=== PATIENT | male | born 1955 | race Caucasian/White ===

== ENCOUNTER 2018-07-17 17:28 | Observation (INO) | payer BC ==
[~2018-07-17] VITALS: Ht 193 cm; Wt 153.9 kg
[~2018-07-17 17:28] MED LIST: ACAR100T2 PO; ASPI-1197 PO; ATOR20TA65 PO; CARAL PO; DABI150C PO; DRON400T2 PO; ENAL10TA PO; FURO80TA3 PO; LEVO50TA11 PO; MELO-108 PO; METF-446 PO; PANT40TA PO; POTA-79 PO; SAXA5TAB PO; TEST1.25 TP; TRAZ-187 PO; TYL3B PO; VERA180T8 PO; ZOLP12.52 PO
[2018-07-17 17:48] LABS: BASOPHILS % (AUTO) 0.8 % (0.0-5.0); EOSINOPHILS % (AUTO) 1.8 % (0.0-8.0); HEMATOCRIT 45.5 % (42-54); LYMPHOCYTES % (AUTO) 27.1 % (21.0-51.0); MEAN CORPUSCULAR HEMOGLOBIN 29.2 pg (27.0-33.0); MEAN CORPUSCULAR HGB CONC 34.1 g/dL (32.0-36.0); MEAN CORPUSCULAR VOLUME 85.8 fL (79-99); MONOCYTES % (AUTO) 11.2 % (3.0-13.0); NEUTROPHILS % (AUTO) 59.1 % (40.0-77.0); PLATELET COUNT (AUTO) 174 K/uL (130-400); RED CELL DISTRIBUTION WIDTH 14.8 % (11.0-15.5); WHITE BLOOD COUNT (AUTO) 6.3 K/uL (4.8-10.8)
[2018-07-17 18:01] LABS: INR 1.09 (0.85-1.15); PARTIAL THROMBOPLASTIN TIME 36.6 SEC (26.3-35.5); PROTHROMBIN TIME 11.4 SEC (9.6-11.6)
[2018-07-17] MEDS ORDERED: DEXTROSE 5%-WATER 100 ML IV ONE (18:08)
[2018-07-17] MEDS ORDERED: AMIODARONE HCL 50 MG/ML 3 ML VIAL ONE (18:08)
[2018-07-17 18:13] LABS: CREATININE 1.2 mg/dL (0.5-1.5); POTASSIUM 4.1 mmol/L (3.5-5.1)
[2018-07-17 18:25] LABS: RAPID GROUP A STREP NEGATIVE (NEGATIVE)
[2018-07-17 18:28] LABS: ALBUMIN 4.1 g/dL (3.5-5.0); BILIRUBIN,TOTAL 0.4 mg/dL (0.2-1.0); THYROID STIMULATING HORMONE 1.15 uIU/mL (0.36-3.74); TOTAL PROTEIN, SERUM 7.2 g/dL (6.0-8.3)
[2018-07-17] MEDS ORDERED: AMIODARONE HCL 900 MG in DEXTROSE 5%-WATER 500 ML IV SCH (18:30)
[2018-07-17] MEDS ORDERED: ONDANSETRON HCL 4 MG/2 ML VIAL IV PRN (19:45)
[2018-07-17] MEDS ORDERED: MORPHINE SULFATE 2 MG/ML 1ML SYG IV PRN (19:45)
[2018-07-17] MEDS ORDERED: ACETAMINOPHEN 325 MG TAB PO PRN (19:45)
[2018-07-17] MEDS ORDERED: ZOLPIDEM TARTRATE 5 MG TAB PO SCH (21:00)
[2018-07-17] MEDS ORDERED: DRONEDARONE HYDROCHLORIDE 400 MG TABLET PO SCH (21:00)
[2018-07-17] MEDS ORDERED: TRAZODONE HCL 100 MG TABLET PO SCH (21:00)
[2018-07-17] MEDS ORDERED: ATORVASTATIN CALCIUM 20 MG TABLET PO SCH (21:00)
[2018-07-17] MEDS ORDERED: ASPIRIN 81MG TAB.CHEW PO SCH (21:00)
[2018-07-17] MEDS ORDERED: ENALAPRIL MALEATE 10 MG TABLET PO SCH (21:00)
[2018-07-17] MEDS: SUCRALFATE 1 GM TABLET PO SCH (22:42)
[2018-07-17] MEDS: POTASSIUM CHLORIDE 20 MEQ ERTAB PO SCH (22:42)
[2018-07-17] MEDS: DABIGATRAN ETEXILATE MESYLATE 150 MG CAPSULE PO SCH (22:44)
[2018-07-17] MEDS: VERAPAMIL HCL 80 MG TABLET PO SCH (22:44)
[2018-07-17 22:45] VITALS: BP 116/84
[2018-07-18 03:55] VITALS: BP 109/70
[2018-07-18] MEDS: VERAPAMIL HCL 80 MG TABLET PO SCH ×2 (05:07→16:09)
[2018-07-18] MEDS ORDERED: LEVOTHYROXINE 50 MCG TABLET PO SCH (06:30)
[2018-07-18 07:48] VITALS: BP 100/48
[2018-07-18] MEDS ORDERED: VERAPAMIL PO SCH (09:00)
[2018-07-18] MEDS ORDERED: ENALAPRIL MALEATE 10 MG TABLET PO SCH (09:00)
[2018-07-18] MEDS ORDERED: PANTOPRAZOLE SODIUM 40 MG TABLET.DR PO SCH (09:00)
[2018-07-18] MEDS ORDERED: FUROSEMIDE 80 MG TABLET PO SCH (09:00)
[2018-07-18] MEDS ORDERED: METOPROLOL TARTRATE 25 MG TAB PO SCH (09:00)
[2018-07-18] MEDS: POTASSIUM CHLORIDE 20 MEQ ERTAB PO SCH (09:21)
[2018-07-18] MEDS: SUCRALFATE 1 GM TABLET PO SCH ×3 (09:21→17:27)
[2018-07-18] MEDS: DABIGATRAN ETEXILATE MESYLATE 150 MG CAPSULE PO SCH (09:22)
[2018-07-18 12:04] VITALS: BP 94/70
[2018-07-18 16:35] VITALS: BP 121/63
[2018-07-18] MEDS ORDERED: DRON400T2 PO (18:40)
[2018-07-18 19:45] VITALS: BP 123/60
--- NOTE | 2018-07-18 19:45 | NUR ---
DC DC TEACHING AND INSTRUCTION GIVEN TO PT; VOICED UNDERSTANDING. BP-123/60, SR-97. PT DENIES PAIN OR DISTRESS. PT ESCORTED TO PRIVATE CAR VIA WHEELCHAIR IN STABLE CONDITION.
== END 2018-07-18 19:35 | disposition home or self-care (01) ==
LOC: EDH 17:28 → EDHIP 18:40 → UNDOADMOB 18:40 → EDHIP 22:26 → 2DH 22:26
PROVIDERS: ADMIT Hospitalist; ATTEND Hospitalist
DX: I48.0 Paroxysmal atrial fibrillation (principal); E11.9 Type 2 diabetes mellitus without complications; E78.5 Hyperlipidemia, unspecified; E87.6 Hypokalemia; E03.9 Hypothyroidism, unspecified; I10 Essential (primary) hypertension; I25.10 Atherosclerotic heart disease of native coronary artery without angina pectoris; I48.92 Unspecified atrial flutter; Z79.84 Long term (current) use of oral hypoglycemic drugs; Z95.0 Presence of cardiac pacemaker; Z95.5 Presence of coronary angioplasty implant and graft; Z96.653 Presence of artificial knee joint, bilateral; Z90.49 Acquired absence of other specified parts of digestive tract; Z82.0 Family history of epilepsy and other diseases of the nervous system; Z82.3 Family history of stroke; Z82.49 Family history of ischemic heart disease and other diseases of the circulatory system; Z82.5 Family history of asthma and other chronic lower respiratory diseases; Z83.3 Family history of diabetes mellitus
CPT/HCPCS: 36415; 71045; 80053; 82550; 82948 ×3; 83880; 84443; 84484 ×2; 85025; 85610; 85730; 87804 ×2; 87880; 93005 ×3; 99291; G0378 ×25; J0282 ×2; J7060 ×2

== ENCOUNTER 2024-09-04 10:20 | Emergency (ER) | payer BC, MEDICARE ==
[~2024-09-04] VITALS: Ht 193 cm; Wt 142.9 kg
[~2024-09-04 10:20] MED LIST changes: +ALLO100T PO; +AMIO400T4 PO; -ATOR20TA65 PO; -CARAL PO; +COLC0.6T73 PO; -DRON400T2 PO; +ENAL-89 PO; -ENAL10TA PO; -MELO-108 PO; -PANT40TA PO; +POTA-364 PO; -POTA-79 PO; +ROSU20TA98 PO; -TEST1.25 TP; -TYL3B PO; -VERA180T8 PO; -ZOLP12.52 PO; +ZOLP12.570 PO
--- NOTE | 2024-09-04 10:51 | ERN ---
General Chief Complaint: Chest Pain Stated Complaint: CP, SOB X 7 WEEKS Source: patient History of Present Illness Initial Comments History of present illness: 69-year-old male with past medical history of atrial fibrillation on Xarelto, CAD status post CABG in 2022, hypertension, hyperlipidemia, hypothyroidism, diabetes mellitus presented to ED with complaints of shortness of breath and chest pain for past 2 weeks. As per the patient, he visited and an emergency department in [place] 2 weeks back with similar complaints where his labs and EKG were unremarkable. His chest pain is central, nonradiating and persistent, associated with shortness of breath and dizziness on exertion. He expectorates white sputum. The patient visited his beef cattle farm worker, Dr. Manuel and is waiting to schedule an appointment with the heat treater helper for possible ablation because of his atrial flutter. Kyle etienne states that his heart rate was elevated at home. No sudden worsening of his symptoms. Patient denies nausea, vomiting, fever, change in bowel or bladder habits. The time presentation his heart rate is 62 per minute, blood pressure 126/73, respiratory rate 16 per minute, temperature 98.4. Timing/Duration: 1 week, constant Severity/Quality: dull Location: substernal Radiation: no radiation Activities at Onset: activity Prior Chest Pain/Cardiac Viet: other Modifying Factors: movement Past Medical History Past Medical History: A-Fib, Diabetes-Type II, Heart Disease, Hypertension Past Surgical History: CABG Constitutional: (-) chills, (-) diaphoresis, (-) fever, (-) malaise, (-) weakness, (-) other documentation EENTM: (-) eye pain, (-) blurred vision, (-) tearing, (-) double vision, (-) ear pain, (-) ear discharge, (-) nose pain, (-) nose congestion, (-) throat pain, (-) Throat swelling, (-) mouth pain, (-) tooth pain, (-) mouth swelling, (-) other documentation Cardiovascular: (+) chest pain, (+) edema, (+) palpitations Gastrointestinal/Abdominal: (-) nausea, (-) vomiting, (-) diarrhea, (-) abdominal pain, (-) abdominal distention, (-) constipation, (-) rectal bleeding, (-) dark stool/melena, (-) other documentation Neuro: (-) altered mental status, (-) headache, (-) syncope, (-) paralysis, (-) numbness, (-) seizure, (-) pre-existing deficit, (-) tremors, (-) weakness, (-) dizziness, (-) slurred speech, (-) vertigo, (-) other documentation Physical Exam General Appearance: (+) no apparent distress Orientation: (+) alert, (+) oriented x 3 Head/Face Trauma: No Eye: bilateral eye normal inspection, bilateral eye PERRL, bilateral eye EOMI Respiratory: (+) chest non-tender, (+) crackles Heart: (+) regular Vascular: (+) edema Gastrointestinal: (+) soft, (+) non-tender, (+) bowel sound present Results Laboratory and Microbiology Lab and Micro Result Laboratory Tests Test 09/04/24 11:10 09/04/24 12:37 09/04/24 13:10 White Blood Count 5.9 K/uL (4.8-10.8) Red Blood Count 5.15 MIL/uL (4.50-6.20) Hemoglobin 14.4 g/dL (14.0-18.0) Hematocrit 45.1 % (42-54) Mean Corpuscular Volume 87.6 fL (79-99) Mean Corpuscular Hemoglobin 28.0 pg (27.0-33.0) Mean Corpuscular Hemoglobin Concent 31.9 g/dL (32.0-36.0) L Red Cell Distribution Width 13.2 % (11.0-15.5) Platelet Count 156 K/uL (130-400) Mean Platelet Volume 9.1 fL (7.5-10.5) Immature Granulocyte % (Auto) 0.7 % (0-1) Neutrophils (%) (Auto) 68.5 % (40.0-77.0) Lymphocytes (%) (Auto) 19.6 % (21.0-51.0) L Monocytes (%) (Auto) 9.7 % (3.0-13.0) Eosinophils (%) (Auto) 1.2 % (0.0-8.0) Basophils (%) (Auto) 0.3 % (0.0-5.0) Neutrophils # (Auto) 4.0 K/uL (1.8-7.7) Lymphocytes # (Auto) 1.2 K/uL (1.0-4.8) Monocytes # (Auto) 0.6 K/uL (0.1-1.0) Eosinophils # (Auto) 0.07 K/uL (0.00-0.70) Basophils # (Auto) 0.02 K/uL (0.00-0.20) Absolute Immature Granulocyte (auto 0.04 K/uL (0-1) Nucleated Red Blood Cells 0.0 % (0.0-0.19) Sodium Level 137 mmol/L (136-145) Potassium Level 4.0 mmol/L (3.5-5.1) Chloride Level 99 mmol/L (101-111) L Carbon Dioxide Level 34 mmol/L (21-32) H Blood Urea Nitrogen 27 mg/dL (7-18) H Creatinine 0.9 mg/dL (0.5-1.3) Glomerular Filtration Rate Calc 94 mL/min (>90) Random Glucose 173 mg/dL (70-105) H Total Calcium 9.5 mg/dL (8.5-10.1) Total Creatine Kinase 41 U/L (21-232) # 56 U/L (21-232) # B-Type Natriuretic Peptide 110 pg/mL (0-100) H Urine Color LIGHT-YELLOW (YELLOW) Urine Appearance CLEAR (CLEAR) Urine pH 5.0 (5.0-8.0) Urine Specific [place] 1.022 (1.001-1.031) Urine Protein NEGATIVE mg/dL (NEGATIVE) Urine Glucose (UA) >=1000 mg/dL (NEGATIVE) H Urine Ketones NEGATIVE mg/dL (NEGATIVE) Urine Occult Blood NEGATIVE (NEGATIVE) Urine Nitrate NEGATIVE (NEGATIVE) Urine Bilirubin NEGATIVE mg/dL (NEGATIVE) Urine Urobilinogen 0.2 mg/dL (0.2-1.0) Urine Leukocyte Esterase NEGATIVE Camilla/uL Urine RBC None /HPF (0-1) Urine WBC 0-1 /HPF (0-1) Urine Bacteria None /HPF (None Seen) Magnesium Level 2.00 mg/dL (1.80-2.40) Troponin I High Sensitivity 19 ng/L (4-75) EKG/XRAY/US/CT/MRI EKG Comment Regular sinus rhythm with ventricular rate of 62 beats per minute ND interval 227, QTC 483 Normal axis Right bundle branch block Orders, Meds, Vital Signs Orders Procedure Category Date Status Time Vital Signs Per CPOE 09/04/24 Transmitted Routine 10:48 B-Type Natriuretic LAB 09/04/24 Complete Peptide 10:48 Chest 1vw RAD 09/04/24 Resulted 10:48 12 Lead Ekg Tracing- EKG 09/04/24 Complete Technical 10:48 Oxygen By Nc/Pulse Ox CPOE 09/04/24 Transmitted 10:48 Maintain Iv CPOE 09/04/24 Transmitted 10:48 Iv Insertion CPOE 09/04/24 Transmitted 10:48 Cardiac Monitoring CPOE 09/04/24 Transmitted 10:48 Pulse Oximetry With CPOE 09/04/24 Transmitted Vs And Prn 10:48 Cbc With Differential LAB 09/04/24 Complete 10:48 Activity: Br W/Brp CPOE 09/04/24 Transmitted With Assist 10:48 Creatine Kinase, Total LAB 09/04/24 Complete 10:48 Urinalysis Profile LAB 09/04/24 Complete 10:48 Bedside Troponin-I LAB.ER 09/04/24 Complete (Poc) 10:48 Basic Metabolic Panel LAB 09/04/24 Complete 10:48 Magnesium LAB 09/04/24 Complete 12:38 Creatine Kinase, Total LAB 09/04/24 Complete 12:38 Troponin I High LAB 09/04/24 Complete Sensitivity 12:38 Vital Signs Date Time Temp Pulse Resp B/P (MAP) Pulse Ox O2 Delivery O2 Flow Rate FiO2 09/04/24 16:17 98.4 73 20 98/53 100 Room Air* 0 09/04/24 15:30 98.4 60 20 124/70 100 Room Air* 0 09/04/24 14:30 98.4 60 20 124/72 100 Room Air* 0 09/04/24 13:32 98.6 59 20 122/71 100 Room Air* 0 09/04/24 12:36 98.6 59 20 138/73 100 Room Air* 0 09/04/24 11:30 98.6 61 20 134/79 100 Room Air* 0 09/04/24 10:21 98.4 63 16 126/73 96 Room Air 0 Differential diagnosis : Atrial fibrillation converted to normal sinus, arrhythmia, CHF exacerbation Rationale: Tests considered and ordered secondary to shared decision making include: I will re-evaluate the patient after treatment and diagnostic exams have returned to determine whether they require further testing, can be safely discharged home, or need admission for further treatment and evaluation. Given the social determinants of health affecting care, including literacy, access to medical care, prescription drug management, and [id number] drugs, I will ensure that treatment plans are tailored accordingly. There are no social concerns with this patient. Risk of complication and/or morbidity or mortality of patient management: None Need for hospitalization: Patient does not meet criteria for hospitalization. Need for emergency major/minor surgery: No Prescription drug management Prescriptions will include symptomatic care Medications-Per medication reconciliation Previous outside records reviewed: Old ER visits. Patient's prior external medical records from other ER visits were reviewed by me as indicated. Prior testing and results from previous visits were reviewed. Prior tests were taken into account with medical decision making and resource utilization, independent historian/historians were used to obtain complete medical history. I independently interpreted the test that were performed, results were reviewed by me and considered findings on radiology. Medical management and examination interpretation discussions was done by me with other qualified healthcare professionals as indicated for the patient's care. Revaluation: Patient has been hemodynamically stable throughout the course of observation in emergency room. Reached out to Dr. Manuel-she recommended to follow up as outpatient if he develops further episodes of palpitations. Tana allen patient is in normal sinus rhythm and she does not recommendation admission at this time. Conveyed the same to patient and bystander -they are agreement. Disposition : Discharge the patient home DX & DISP Departure Impression: Primary Impression: Palpitations Additional Impressions: Chest pain due to CAD, CHF (congestive heart failure) Condition: Stable Disposition: Discharge Additional Instructions: Your symptoms including mild chest pain and shortness of breaths that has been persisting for weeks might be attributed to atrial fibrillation episodes versus congestive heart failure heart failure vs coronary artery disease. During the time you were observed in the emergency department, you had normal sinus rhythm. As per the cardiology recommendations - follow up with cardiology as outpatient . Follow-up with primary care provider in 1-2 days Take medications as directed here in the emergency room. It is okay to continue home medications unless otherwise discussed during your visit in the emergency room today. Increase oral hydration. Return to your nearest emergency room if symptoms worsen or if there is no improvement. Call 911 if you need immediate assistance. Referrals: SELF,REFERRAL (PCP) I WAS PRESENT AND PARTICIPATED IN THE CARE OF THIS PATIENT ALONGSIDE WITH THE RESIDENT PHYSICIAN. I HAVE REVIEWED AND PERSONALLY MADE AND APPROVED THE MANAGEMENT PLAN THAT IS DOCUMENTED IN THE NOTE BY MYSELF WITH THE RESIDENT PHYSICIAN. I ACKNOWLEDGED FOR RESPONSIBILITY FOR THE PATIENT'S MANAGEMENT PLAN. Critical Care Note Comments HEART Score for Major Cardiac Events RESULT SUMMARY: 5 points Moderate Score (4-6 points) Risk of MACE of 12-16.6%. INPUTS: History > 0 = Slightly suspicious EKG > 1 = Non-specific repolarization disturbance Age > 2 = >65 Risk factors > 2 = >3 risk factors or history of atherosclerotic disease Initial troponin > 0 = <normal limit ROJAS ABREU MD Sep 04, 2024 10:51 ROMELIA CHANDRA MD Sep 06, 2024 08:53
[2024-09-04 11:17] LABS: BASOPHILS # (AUTO) 0.02 K/uL (0.00-0.20); BASOPHILS % (AUTO) 0.3 % (0.0-5.0); EOSINOPHILS # (AUTO) 0.07 K/uL (0.00-0.70); EOSINOPHILS % (AUTO) 1.2 % (0.0-8.0); HEMATOCRIT 45.1 % (42-54); IMMATURE GRANULOCYTE ABSOLUTE 0.04 K/uL (0-1); LYMPHOCYTES # (AUTO) 1.2 K/uL (1.0-4.8); LYMPHOCYTES % (AUTO) 19.6 % (21.0-51.0); MEAN CORPUSCULAR HGB CONC 31.9 g/dL (32.0-36.0); MEAN CORPUSCULAR VOLUME 87.6 fL (79-99); MONOCYTES # (AUTO) 0.6 K/uL (0.1-1.0); MONOCYTES % (AUTO) 9.7 % (3.0-13.0); NEUTROPHILS % (AUTO) 68.5 % (40.0-77.0); PLATELET COUNT (AUTO) 156 K/uL (130-400); RED BLOOD CELL COUNT(AUTO) 5.15 MIL/uL (4.50-6.20); RED CELL DISTRIBUTION WIDTH 13.2 % (11.0-15.5); WHITE BLOOD COUNT (AUTO) 5.9 K/uL (4.8-10.8)
[2024-09-04 11:31] LABS: CREATININE 0.9 mg/dL (0.5-1.3)
[2024-09-04 11:47] LABS: B-TYPE NATRIURETIC PEPTIDE 110 pg/mL (0-100)
--- NOTE | 2024-09-04 12:03 | EKG ---
[facility] Test Date: 2024-09-04 Test Time: 10:28:12 Pat Name: ADRIENNE AKHTAR Department: ED Room: Gender: M Maintainability Engineer: [id number] : 1955 Requested By: ROMELIA CHANDRA Order Number: [id number] Reading MD: Juanpablo Lovett Measurements Intervals [place] Rate: 62 P: 73 MT: 227 QRS: -24 QRSD: 171 T: 7 QT: 474 QTc: 483 Interpretive Statements Sinus rhythm Prolonged MT interval Right bundle branch block Compared to ECG 04/20/2020 05:59:55 First degree AV block now present Sinus tachycardia no longer present Atrial premature complex(es) no longer present Ventricular premature complex(es) no longer present Myocardial infarct finding no longer present Electronically Signed On 09-06-2024 14:01:56 CDT by Juanpablo Lovett Please click the below link to view image of tracing.
--- NOTE | 2024-09-04 12:18 | HMCIMG ---
Exam Type: CHEST 1VW Clinical Information: CHEST PAIN Comparison: None Findings: The lungs are clear of infiltrates. The heart is enlarged. Bony and soft tissue structures of the chest wall are unremarkable. IMPRESSION: Cardiomegaly. Clear lungs.
[2024-09-04 13:24] LABS: APPEARANCE,URINE CLEAR (CLEAR); BILIRUBIN,URINE NEGATIVE (NEGATIVE); COLOR,URINE LIGHT-YELLOW (YELLOW); GLUCOSE, URINE (UA) >=1000 mg/dL (NEGATIVE); KETONES,URINE NEGATIVE (NEGATIVE); LEUKOCYTE ESTERASE ,URINE NEGATIVE Leu/uL (NEGATIVE); NITRATE,URINE NEGATIVE (NEGATIVE); OCCULT BLOOD,URINE NEGATIVE (NEGATIVE); PROTEIN,URINE NEGATIVE (NEGATIVE); UROBILINOGEN,URINE 0.2 mg/dL (0.2-1.0)
[2024-09-04 13:50] LABS: ADD UA MICROSCOPIC YES
[2024-09-04 13:56] LABS: WBC,URINE 0-1 /HPF (0-1)
--- NOTE | 2024-09-04 14:33 | CONS ---
[facility] CARDIOLOGY CONSULTATION REPORT Cardiology consultation note dictated for Yokasta White MD Date Patient Seen: Sep 04, 2024 Requesting Physician: Yee Jacobsen MD Reason for Consultation: Chest pain History of Present Illness: This is a 69-year-old male with past medical history of HTN, CAD s/p PCI in 2009, four-vessel coronary bypass grafting in October 2022 at [facility], paroxysmal atrial fibrillation s/p PVI 01/2015 and redo right PVI with posterior wall ablation 07/08/15, type I atrial flutter, s/p single chamber PPM implant and s/p PPM explant and lead extraction 04/18/19, 2D Echo in 2021 with an EF of 60- 65%, cardioversion for tachycardia in January and February 2024 with 30-day monitor with Dr. Laughlin but results are not available, and symptomatic refractory tachycardia who presented to the ED with complaints of chest pain, palpitations, shortness of breath with or without exertion, dizziness, and general body weakness that gradually progressed over the last six weeks prompting him to seek medical attention today. He endorsed his heart rate on his blood pressure monitor was in the one-teens this morning. Upon arrival, EKG demonstrated NSR/1st degree AVB with a hr of 62bpm, and a RBBB. Cardiology has been consulted for recommendations. At this time, the patient states he is no longer symptomatic and feels great. Bedside telemetry demonstrates NSR with hr in the 70's. He believes he may have converted from Atrial flutter to NSR after a bowel movement. Past Medical History: As per HPI and summarized below Past Surgical History: Four-vessel coronary bypass grafting in October 2022 at [facility] S/p single chamber PPM implant and s/p PPM explant and lead extraction 04/18/19 Family History: The patient's father was diagnosed with cancer and diabetes mellitus type II. The patient's mother was diagnosed with hypertension and heart disease. Social History: The patient lives with his . Habits: The patient denies alcohol, tobacco, or illicit drug use. Home Meds: Sotalol HCl 80 MG Tablet 1 tablet Orally every 12 hrs Bumetanide 1 MG Tablet 1 tablet Orally twice a day Losartan Potassium 50 MG Tablet 1 tablet Orally Once a day Xarelto 20 MG Tablet 1 tablet with food Orally Once a day Allopurinol 100 MG Tablet 1 tablet Orally Once a day Jardiance 25 MG Tablet 1 tablet Orally Once a day Montelukast Sodium 10 MG Tablet 1 tablet Orally Once a day glipiZIDE 10 MG Tablet 1 tablet 30 minutes before breakfast Orally Once a day Levothyroxine Sodium 50 mcg TABLET 1 tablet Oral Once a day , Notes to Pharmacist: 1/2 EQL Adult Aspirin Low Strength [address] 2 DAILY Oral metFORMIN HCl 1000 MG Tablet 1 tablet with a meal Orally twice a day Rosuvastatin Calcium 20 MG Tablet 1 tablet Orally Once a day Zolpidem Tartrate ER 12.5 mg TAB MPHASE 1 tablet Oral Once a day traZODone HCl 100 MG Tablet 1 tablet at bedtime Orally Once a day Potassium Chloride Jessica ER 10 MEQ Tablet Extended Release 1 tablet with food Orally once a day Current Meds: Review of Systems: CONST: No fever, fatigue, or weight changes. EYES: No recent vision problems. ENT: No congestion, ear pain, or sore throat. C/V: No chest pain, palpitations, or edema. RESP: No cough, congestion, wheezing or shortness of breath. GI: No abdominal pain, nausea, vomiting, constipation, or diarrhea. : No incontinence or dysuria. SKIN: No rash. NEURO: No headache, focal numbness or weakness, dizziness, or seizures. PSYCH: No depression or anxiety. HEME: No abnormal bruising or bleeding. LYMPH: No swollen glands. Physical Examination: GENERAL: No acute distress. HEAD: Normal with no signs of head trauma. EYES: PERRLA, EOMI, conjunctiva and sclera normal. ENT: Hearing grossly intact, normal oropharynx. NECK: Supple without JVD. There is no tenderness, lymphadenopathy, or masses. No thyromegaly. Normal carotid upstrokes without bruits. LUNGS: Clear breath sounds bilaterally. No wheezes, or rhonchi. HEART: Normal rate and rhythm. Normal S1 and S2 without murmurs, gallop or rub. VASC: Peripheral pulses +2 bilaterally. ABD: Bowel sounds normal, soft, nontender, no masses, no organomegaly. No audible bruits. : Not examined LYMPH: No lymphadenopathy noted. EXT: No clubbing, cyanosis or edema. SKIN: No rashes or lesions noted. NEURO: Awake, alert, and oriented x3. No focal sensory or strength deficits noted. Vital Signs (last 8hr) Date Time Temp Pulse Resp B/P (MAP) Pulse Ox O2 Delivery O2 Flow Rate FiO2 09/04/24 13:32 98.6 59 20 122/71 100 Room Air* 0 21 09/04/24 12:36 98.6 59 20 138/73 100 Room Air* 0 21 09/04/24 11:30 98.6 61 20 134/79 100 Room Air* 0 21 09/04/24 10:21 98.4 63 16 126/73 96 Room Air 0 Laboratory: Hematology Labs: Test 09/04/24 11:10 Range/Units White Blood Count 5.9 4.8-10.8 K/uL Red Blood Count 5.15 4.50-6.20 MIL/uL Hemoglobin 14.4 14.0-18.0 g/dL Hematocrit 45.1 42-54 % Mean Corpuscular Volume 87.6 79-99 fL Mean Corpuscular Hemoglobin 28.0 27.0-33.0 pg Mean Corpuscular Hemoglobin Concent 31.9 L 32.0-36.0 g/dL Red Cell Distribution Width 13.2 11.0-15.5 % Platelet Count 156 130-400 K/uL Mean Platelet Volume 9.1 7.5-10.5 fL Immature Granulocyte % (Auto) 0.7 0-1 % Neutrophils (%) (Auto) 68.5 40.0-77.0 % Lymphocytes (%) (Auto) 19.6 L 21.0-51.0 % Monocytes (%) (Auto) 9.7 3.0-13.0 % Eosinophils (%) (Auto) 1.2 0.0-8.0 % Basophils (%) (Auto) 0.3 0.0-5.0 % Neutrophils # (Auto) 4.0 1.8-7.7 K/uL Lymphocytes # (Auto) 1.2 1.0-4.8 K/uL Monocytes # (Auto) 0.6 0.1-1.0 K/uL Eosinophils # (Auto) 0.07 0.00-0.70 K/uL Basophils # (Auto) 0.02 0.00-0.20 K/uL Absolute Immature Granulocyte (auto 0.04 0-1 K/uL Nucleated Red Blood Cells 0.0 0.0-0.19 % Chemistry Labs: Test 09/04/24 13:10 3/17/25 11:10 Range/Units Troponin I High Sensitivity 19 4-75 ng/L Sodium Level 137 136-145 mmol/L Potassium Level 4.0 3.5-5.1 mmol/L Chloride Level 99 L 101-111 mmol/L Carbon Dioxide Level 34 H 21-32 mmol/L Blood Urea Nitrogen 27 H 7-18 mg/dL Creatinine 0.9 0.5-1.3 mg/dL Glomerular Filtration Rate Calc 94 >90 mL/min Random Glucose 173 H 70-105 mg/dL Total Calcium 9.5 8.5-10.1 mg/dL Total Creatine Kinase 41 # 21-232 U/L B-Type Natriuretic Peptide 110 H 0-100 pg/mL Diagnostics / Radiology: Impression and Plan: Symptomatic refractory tachycardia vs atrial flutter HTN CAD s/p PCI in 2009 Four-vessel coronary bypass grafting in October 2022 at [facility] Paroxysmal atrial fibrillation s/p PVI 01/2015 and redo right PVI with posterior wall ablation 07/08/15 Type I atrial flutter S/p single chamber PPM implant and s/p PPM explant and lead extraction 04/18/19 2D Echo in 2021 with an EF of 60-65% Cardioversion for tachycardia in January and February 2024 with 30-day monitor with Dr. Laughlin but results are not available Symptomatic refractory tachycardia Over the last 6 weeks, the patient has been experiencing chest pain, palpitations, shortness of breath with or without exertion, dizziness, and general body weakness that gradually progressed causing him to seek medical attention today. He endorsed his heart rate on his blood pressure monitor was in the one-teens this morning. Upon arrival, EKG demonstrated NSR/1st degree AVB with a hr of 62bpm, and a RBBB. At this time, the patient states he is no longer symptomatic and feels great. Bedside telemetry demonstrates NSR with hr in the 70's. He believes he may have converted from Atrial flutter to NSR after a bowel movement. AKIRA VASQUEZ ENGINE RESEARCH ENGINEER Sep 04, 2024 14:32
[2024-09-04 16:17] VITALS: BP 98/53; PULSE 73; RESP 20; TEMP 98.4; O2SAT 100
== END 2024-09-04 17:05 | disposition home or self-care (01) ==
LOC: EDH 10:20
DX: I25.10 Atherosclerotic heart disease of native coronary artery without angina pectoris (principal); I11.0 Hypertensive heart disease with heart failure; I50.9 Heart failure, unspecified; E11.9 Type 2 diabetes mellitus without complications; R00.2 Palpitations; R42 Dizziness and giddiness; I48.0 Paroxysmal atrial fibrillation; E78.5 Hyperlipidemia, unspecified; E03.9 Hypothyroidism, unspecified; Z95.1 Presence of aortocoronary bypass graft; Z95.0 Presence of cardiac pacemaker; Z79.899 Other long term (current) drug therapy; Z79.84 Long term (current) use of oral hypoglycemic drugs; Z79.01 Long term (current) use of anticoagulants; Z79.82 Long term (current) use of aspirin; Z95.5 Presence of coronary angioplasty implant and graft; Z79.890 Hormone replacement therapy
CPT/HCPCS: 36415; 71045; 80048; 81001; 82550; 83735; 83880; 84484; 85025; 93005; 99285